=== PATIENT | female | born 1975 | race Two or more races ===

== ENCOUNTER 2018-08-08 00:48 | Emergency (ER) | payer BC ==
[~2018-08-08] VITALS: Ht 160 cm; Wt 59.5 kg
[2018-08-08 01:24] VITALS: BP 153/96
[2018-08-08] MEDS ORDERED: AMOX/CLAVULANATE 875 MG TABLET ONE (02:15)
[2018-08-08] MEDS ORDERED: KETOROLAC TROMETHAMINE INJ 30 MG/ML VIAL ONE (02:15)
[2018-08-08] MEDS ORDERED: AMOX/CLAVULANATE 875 MG TABLET PO ONE (02:30)
[2018-08-08] MEDS ORDERED: KETOROLAC TROMETHAMINE INJ 60 MG/2 ML VIAL IM ONE (02:30)
== END 2018-08-08 02:25 | disposition home or self-care (01) ==
LOC: ER 00:57
DX: H66.92 Otitis media, unspecified, left ear (principal); J06.9 Acute upper respiratory infection, unspecified; J45.909 Unspecified asthma, uncomplicated; Z88.6 Allergy status to analgesic agent
CPT/HCPCS: 96372; 99283; A4606; J1885; Z7610

== ENCOUNTER 2020-03-08 15:36 | Emergency (ER) | payer BC, OTHER ==
[~2020-03-08] VITALS: Ht 160 cm; Wt 63.5 kg
[2020-03-08 16:46] VITALS: BP 122/72
--- NOTE | 2020-03-08 17:00 | NUR ---
COVID SPECIMEN COLLECTED AND SENT TO LAB.
--- NOTE | 2020-03-08 17:04 | NUR ---
Patient discharged to home in stable condition. Written and verbal after care instructions given. Patient verbalizes understanding of instruction.
== END 2020-03-08 17:05 | disposition home or self-care (01) ==
LOC: ER 15:36
DX: R50.9 Fever, unspecified (principal); R05 Cough; R06.02 Shortness of breath; Z20.828 Contact with and (suspected) exposure to other viral communicable diseases; J45.909 Unspecified asthma, uncomplicated
CPT/HCPCS: 99283; C9803; U0003

== ENCOUNTER 2020-03-31 08:08 | Outpatient (CLI) | payer BC, OTHER ==
[2020-03-31 09:10] LABS: CALCIUM, SERUM 8.7 mg/dL (8.5-10.1); CREATININE 0.8 mg/dL (0.6-1.3)
[2020-03-31 09:12] LABS: BASOPHILS % (AUTO) 0.8 % (0.0-2.0); EOSINOPHILS % (AUTO) 3.5 % (0.0-6.0); HEMATOCRIT 40 % (33-45); HEMOGLOBIN 13.2 g/dL (11.5-14.8); LYMPHOCYTES # (AUTO) 1.3 /CMM (0.8-4.8); LYMPHOCYTES % (AUTO) 21.7 % (20.0-44.0); MEAN CORPUSCULAR HGB CONC 33 g/dl (31.0-36.0); MEAN CORPUSCULAR VOLUME 90 fL (82-100); MONOCYTES # (AUTO) 0.8 /CMM (0.1-1.30); MONOCYTES % (AUTO) 12.5 % (2.0-12.0); NEUTROPHILS # (AUTO) 3.7 /CMM (1.8-8.9); NEUTROPHILS % (AUTO) 61.5 % (43.0-81.0); PLATELET COUNT (AUTO) 246 /CMM (150-450); WHITE BLOOD COUNT (AUTO) 6.1 K/uL (4.3-11.0)
== END 2020-03-31 23:59 | disposition home or self-care (01) ==
LOC: LAB 08:08
PROVIDERS: ATTEND Family Medicine
DX: J18.9 Pneumonia, unspecified organism (principal)
CPT/HCPCS: 36415; 80048-TC; 85025-TC

== ENCOUNTER 2020-08-25 08:59 | Outpatient (CLI) | payer BC, OTHER | END 2020-08-25 23:59 | disposition home or self-care (01) | LOC: CT 08:59 | PROVIDERS: ATTEND Family Medicine | DX: J34.3 Hypertrophy of nasal turbinates (principal) | CPT/HCPCS: 70486-TC ==

== ENCOUNTER 2021-02-22 08:17 | Emergency (ER) | payer BC, OTHER ==
[~2021-02-22] VITALS: Ht 160 cm; Wt 61.2 kg
[2021-02-22 08:27] VITALS: BP 132/54
[2021-02-22] MEDS ORDERED: IBUP-1957 PO (08:37)
== END 2021-02-22 08:48 | disposition home or self-care (01) ==
LOC: ER 08:17
DX: S63.591A Other specified sprain of right wrist, initial encounter (principal); J45.909 Unspecified asthma, uncomplicated; Z88.6 Allergy status to analgesic agent; X50.9XXA Other and unspecified overexertion or strenuous movements or postures, initial encounter; Y93.89 Activity, other specified; Y92.89 Other specified places as the place of occurrence of the external cause; Y99.0 Civilian activity done for income or pay

== ENCOUNTER 2021-12-14 09:04 | Outpatient (CLI) | payer BC ==
[~2021-12-14 09:04] MED LIST: IBUP-1957 PO
== END 2021-12-14 23:59 | disposition home or self-care (01) ==
LOC: US 09:04
PROVIDERS: ATTEND Family Medicine
DX: N83.201 Unspecified ovarian cyst, right side (principal); N83.202 Unspecified ovarian cyst, left side; N92.6 Irregular menstruation, unspecified; Z97.5 Presence of (intrauterine) contraceptive device
CPT/HCPCS: 76856-TC